=== PATIENT | male | born 2000 | race Caucasian/White ===

== ENCOUNTER 2024-02-20 16:42 | Emergency (ER) | payer OTHER, SELFPAY ==
[2024-02-20 16:51] VITALS: BP 119/68; PULSE 95; RESP 18; TEMP 37.8; O2SAT 100; BMI 25.1
--- NOTE | 2024-02-20 17:13 | XR_ITS ---
Patient: VERONICA LISA Facility:?[facility] Patient ID:?[id number] Site Patient ID:?[id number]. Site :?[id number] Study:?XRay-Extremity Right FOOT 3 VIEWS-02/20/2024 5:34:29 PM Ordering Physician:BLAYNE Final Report: INDICATION: Right foot trauma. TECHNIQUE: Right foot radiographs, 3 views. COMPARISON: None. FINDINGS: No acute fractures or dislocation. The joint spaces are preserved. The Lisfranc joint is intact. Ill-defined hyperdensity along the medial soft tissues of the distal 1st phalanx, unclear whether this represents a foreign body. No significant soft tissue edema foreign bodies. IMPRESSION: 1. No acute fractures or dislocation. 2. Ill-defined hyperdensity along the medial soft tissues of the distal 1st phalanx, may represent a foreign body. Direct inspection is advised. Dictated by Narendra Lopez MD @ 02/20/2024 5:53:09 PM Signed by:?Narendra Lopez MD @02/20/2024 5:53:09 PM (Electronic Signature)
--- NOTE | 2024-02-20 17:16 | ED_ITS ---
HPI - General Adult General Chief complaint: Laceration/Wound Stated complaint: Right foot injury Time Seen by Provider: 02/20/24 16:52 History of Present Illness HPI narrative: Patient is a pleasant 23-year-old white male was working on an engine on his car, and dropped a grinding wheel on his foot. It cut sagittal year crosses top of his foot about a cm and half laceration. This is over his 1st meta tarsal. Patient was able ambulate without difficulty does have some pain in the area but it is only around where the cut is. He is uncertain of his last tetanus. He is generally quite healthy, no allergies to medicines. He was working at home when this happened. He does not have significant pain in his foot but it does is sore on the cot. Related Data Previous Rx's Medication Instructions Recorded cephalexin 500 mg capsule 500 mg PO QID #20 caps 02/20/24 Allergies Allergy/AdvReac Type Severity Reaction Status Date / Time No Known Drug Allergies Allergy Verified 02/20/24 16:55 Review of Systems Status of ROS: Reports: 6 or more systems reviewed and unremarkable except as noted in History and below PFSH PFSH Social History Smoking Status: Never smoker How often do you have a drink containing alcohol: never AUDIT-C Alcohol total score: 0 Non-prescribed substance use: denies use Exam Narrative: Exam Narrative: Objective temp is 100? in general no apparent distress cooperative Right foot exam shows a 1.5 cm laceration over the top of the 1st metatarsal distally oriented from medial to lateral. Patient has full range of motion of the toe, does not appear to ball of deep structures Sterile ergo was applied Const: Vital Signs, click to edit/add: Vital Signs - 24 hr 02/20/24 16:51 Temperature 100.0 F H Pulse Rate [Pulse Oximeter] 95 Respiratory Rate 18 Blood Pressure [Ri ght Upper Arm] 119/68 Pulse Oximetry 100 Oxygen Delivery Me thod Room Air Course Vital Signs Vital signs: Initial Vital Signs Temperature 100.0 F H 02/20/24 16:51 Temperature Source Temporal Artery Scan 02/20/24 16:51 Pulse Rate 95 02/20/24 16:51 Respiratory Rate 18 02/20/24 16:51 Blood Pressure 119/68 02/20/24 16:51 Blood Pressure Mean 85 05/12/24 16:51 Blood Pressure Position Sitting 02/20/24 16:51 Pulse Oximetry 100 02/20/24 16:51 Oxygen Delivery Method Room Air 02/20/24 16:51 Vital Signs Temperature 100.0 F H 02/20/24 16:51 Pulse Rate 95 02/20/24 16:51 Respiratory Rate 18 02/20/24 16:51 Blood Pressure 119/68 02/20/24 16:51 Pulse Oximetry 100 02/20/24 16:51 Oxygen Delivery Method Room Air 02/20/24 16:51 Temperature 100.0 F H 02/20/24 16:51 Pulse Rate 95 02/20/24 16:51 Respiratory Rate 18 02/20/24 16:51 Blood Pressure 119/68 02/20/24 16:51 Pulse Oximetry 100 02/20/24 16:51 Oxygen Delivery Method Room Air 02/20/24 16:51 Medications Administered Medications: Discontinued Medications Generic Name Dose Route Start Last Admin Trade Name Freq PRN Reason Stop Dose Admin Cephalexin HCl 500 mg 02/20/24 17:13 02/20/24 17:31 Cephalexin 500 Mg Capsule PO 02/20/24 17:14 500 mg ONCE ONE Administration Diphtheria/Tetanus/Acell Pertussis 0.5 ml 02/20/24 17:13 02/20/24 17:31 Tetanus/Diphth/Pertussis 0.5 Ml Syringe IM 02/20/24 17:14 0.5 ml .ONCE ONE Administration Medical Decision Making MDM Narrative Medical decision making narrative: 23-year-old male with a injury to the right foot, laceration and contusion. Patient was cut by a grinding wheel. After sterile scrub and preparation irrigation I injected 1% xylocaine without epinephrine for anesthesia 3 3 0 0 Ethilon sutures were placed, good skin is the skin edge approximation, good hemostasis. Patient has full range of motion after repair. There were no foreign bodies noted on inspection. X-ray of the foot is pending. He will be updated on Tdap as he had 1 in 2013. If his x-ray is negative will place him on Keflex 500 q.i.d. x5 days, light activity, suture removal in 7 days, watch for redness infection, limited activity with walking in the foot for the next couple of days. Keep it dry for 24 hours and then soak and bathe as normal. Follow-up in the clinic in 1 week for suture removal. Addendum 5:32 p.m. the patient's x-ray of the foot by my review shows no foreign body no fracture. He will be discharged home, light activity, suture removal in 1 week with primary care, Kim, will update his Tdap today. Her return sooner as needed. Radiology read the x-ray as a distal 1st phalanx ill-defined hyperdensity could be a foreign body in his distal toe but he has no injury there is injury is at the base of the toe and distal foot. I do not think that is related to today's injury. Discharge Plan Discharge Clinical Impression: Contusion of foot, Laceration Patient Disposition: Home w/ Parent or Adult Condition: Improved Additional Instructions: Keep dry for 24 hours then may soak her bathe as needed, Keflex 500 four times a day for five days, Tylenol Advil as needed, light activity for the next couple of days, suture removal in 7 days with your primary care clinic. Return to the ED if problems or concerns. Watch for redness or infection. He will be given an updated tetanus shot today as your last one was in 2013. Activity Level: Light activity Discharge Diet: Regular Prescriptions: New cephalexin 500 mg capsule 500 mg PO QID Qty: 20 0RF Follow Up/Referrals: Moy Allen MD [Primary Care Provider] - Stand Alone Forms: [facility] [employer] [facility] Info Instructions
[2024-02-20] MEDS: cephALEXin 500 MG CAPSULE PO (17:31)
[2024-02-20] MEDS: TETANUS/DIPHTH/PERTUSSIS 0.5 ML SYRINGE IM (17:31)
--- OUTSIDE RECORDS SUMMARY | 2024-02-20 17:43 | XMS_ITS | Clinical Summary ---
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 Name Role Phone Ayad Gaffneysussex Primary Care Provider Unavail able Allergies Active Allergy Reactions Criticality Noted Date Comments Dust Mites Other - Describe In Comment Field 03/21/2009 showed up on allergy test Medications No known medications Active Problems Problem Noted Date Diagnosed Date Allergic rhinitis, cause unspecified 01/04/2007 Immunizations Name Administration Dates Next Due AMB Influenza, (Flumist) Lorna e Intranasal,LAIV4 (Flu Clinic Only) 07/04/2013 DTaP 01/13/2007, 3,2002,09/06,2002 HIB-HepB (Comvax) 08/07/2003,2002,06/19/20 02 HPV 9 (Gardasil 9) 04/24/2020,07/18/2019 Hepatitis A (Peds) 04/24/2020,07/18/2019 Inactivated Polio Vaccine 01/13/2007,12/2002,2002,06/19 Influenza A (H1N1), Inactiva leda (Age >=3 Years) 10/25/2009,09/26/2009 Influenza, IIV3 (Age 6-35 mos) 10/01/2004 Influenza, IIV3 (Age >=3 years) 06/25/20 12,06/12/2009,07/26/2008,08/10 Influenza, IIV4 07/18/2019 Influenza,LAIV4 Live Intrana donny (Flumist) 07/16/2014,07/13/2014,07/07/2011 MMR 01/13/2007,05/09/2003 Meningococcal Vaccine (Menveo) 07/18/2019,2013 Pneumococcal conj 7-Valent (Prevnar 7) 1 ,2002,2002,06/19 Tdap 06/13/2014 Varicella Vaccine 01/13/2007,05/09/2003 Family History Medical History Relation Name Comments Migraines Father Good Health Mother Relation Name Status Comments Father Alive Mother Alive Social History Tobacco Use Types Packs/Day Years Used Date Smoking Tobacco: Passive Smo ke Exposure - Never Smoker Smokeless Tobacco: Never Tobacco Cessation:Counseling Given: Yes Comments:exposed to second hand smoke Alcohol Use Standard Drinks/Week Comments Yes 0 (1 standard drink = 0.6 oz pur e alcohol) occasionally PHQ-2 Answer Date Recorded PHQ-2 TOTAL SCORE 0 04/24/2020 Social Connections Answer Date Recorded Frequency of Communication with Friends and Fami ly Not on file 10/11/2021 Financial Resource Strain Answer Date R ecorded Difficulty of Paying Living Expenses Not on file 10/11/2021 Difficulty of Paying Living Expenses Not on file 10/11/2021 Sex and Gender Information Value Date Recorded Sex Assigned at Not on file Gender Identity Not on file Sexual Orientation Not on file Obstetrics History Last Filed Vital Signs Vital Sign Reading Time Taken Comments Blood Pressure 124/72 08/23/2020 12:13 PM [employer] Pulse 67 08/23/2020 12:13 PM [employer] Temperature 36.8 ??C (98.2 ??F) 08/23/2020 12:[address] Respiratory Rate 18 08/23/2020 12:13 PM [employer] Oxygen Saturation 99% 08/23/2020 12:13 PM [employer] Inhaled Oxygen Concentration - - Weight 83.9 kg (185 lb) 08/23/2020 12:13 PM [employer] Height 182.9 cm (6') 08/23/2020 12:13 PM [employer] Body Mass Index 25.09 08/23/2020 12:13 PM [employer] Plan of Treatment Health Maintenance Due Date Last Done Comments HIV for age 15-65 2017 BMI (ht and wt on same day) for age 18+ 2020 Hepatitis C screening for age 18-79 2020 HPV series for age 9-26 (3 - Male 3-dose series) 07/17/2020 04/24/2020, 07/18/2019 Depression screening for age 12+ 04/24/2021 04/24/2020, 07/18/2019 COVID-19 vaccine series ( season) 2023 Influenza for age 9-49 06/11/2024 9, 07/16/2014, 07/13/2014, Additional history exists Tetanus booster 06/13/2024 06/13/2014 Pneumococcal series for age 6-64 Aged Out 08/07/2003, 2002, 2002, Additional history exists No longer eligible based on patient's age to complete this topic Tdap Completed 06/13/2014 Meningococcal series for age 11-21 Completed 07/18/2019, 06/13/2014 Advance Directives * Full Code (Latest Code Status on File) Date Activated Date Inactivated Comments 07/25/2014 8:08 AM 07/25/2014 4:05 PM Care Teams Quarry Extraction Worker Relationship Specialty Start Date End Date Janelle Gaffney PCP - General 07/30/20
== END 2024-02-20 17:56 | disposition home or self-care (01) ==
LOC: ED 17:41
PROVIDERS: Emergency Provider Family Medicine; PCP Family Medicine
DX: S90.31XA Contusion of right foot, initial encounter (principal); S91.311A Laceration without foreign body, right foot, initial encounter; W20.8XXA Other cause of strike by thrown, projected or falling object, initial encounter
CPT/HCPCS: 12001; 73630; 90471; 90715; 99283; 99284; A9270